=== PATIENT | female | born 1985 | race Caucasian/White ===

== ENCOUNTER 2017-04-27 05:18 | Emergency (ER) | payer OTHER ==
[2017-04-27 07:08] LABS: HEMOGLOBIN 12.8 gm/dl (12.3-15.3); RED BLOOD COUNT 4.92 M/UL (4.00-5.10); WHITE BLOOD COUNT 13.4 K/UL (4.5-11.0)
[2017-04-27 07:27] LABS: BUN/CREATININE RATIO 20 (0-10)
[2017-05-03] MEDS ORDERED: BIRTH CONTROL PO (07:20)
[2017-05-03] MEDS ORDERED: NORCO 7.5-3251 EACH PO (11:00)
== END 2017-04-27 11:07 | disposition home or self-care (01) ==
LOC: ER1 05:18
PROVIDERS: Emergency Medicine
DX: R10.9 Unspecified abdominal pain (principal); R94.5 Abnormal results of liver function studies
CPT/HCPCS: 36415; 80053; 81001; 83690; 84484; 84703; 85025; 87086; 93005; 96374; 99284; J1885

== ENCOUNTER → 2017-05-03 | Day surgery (SDC) | payer OTHER ==
[~2017-05-03] VITALS: Ht 165.1 cm; Wt 104.3 kg
[~2017-05-03] MED LIST: BIRTH CONTROL PO; NORCO 7.5-3251 EACH PO
== END | disposition home or self-care (01) ==
LOC: OR 06:27
PROVIDERS: Surgery
PROC: 0FT44ZZ Resection of Gallbladder, Percutaneous Endoscopic Approach (ICD-10-PCS; principal; 2017-05-03 07:30)
DX: K80.10 Calculus of gallbladder with chronic cholecystitis without obstruction (principal); G89.29 Other chronic pain; M54.9 Dorsalgia, unspecified; E66.9 Obesity, unspecified; Z68.38 Body mass index [BMI] 38.0-38.9, adult; Z87.442 Personal history of urinary calculi; Z79.899 Other long term (current) drug therapy
CPT/HCPCS: 84703; J0295; J1100; J2250; J2405; J2710; J3010; J7030; J7050; J7120; Q9962

== ENCOUNTER → 2022-03-03 | Outpatient (CLI) | payer OTHER ==
[~2022-03-03] MED LIST changes: +FLEXERIL 10 MG10 MG PO; +IBUPROFEN600 MG PO
== END ==
LOC: LAB 18:16
DX: Z13.21 Encounter for screening for nutritional disorder (principal)
CPT/HCPCS: 82308; 82652